=== PATIENT | female | born 1930 | race Caucasian/White ===

== ENCOUNTER → 2017-01-27 | Outpatient (CLI) | payer MEDICARE, BC ==
[~2017-01-27] MED LIST: ADVIL200 M3 PO; ALLOPURINOL300 MG PO; ATORVASTATIN CA10 MG PO; CELEBREX PO; CELLUVISC OD; CELLUVISC OP; CENTRUM PO; CLARITIN10 MG PO; COUMADIN PO; COUMADIN4 MG PO; CYANOCOBAL1000 MCG/1 IJ; FLAGYL PO; FLONASE 0.05% N16 G1; FLONASE16 GM; FLORASTOR250 M1 PO; GABAPENTIN300 M1 PO; GABAPENTIN300 MG PO; GABAPENTIN600 MG PO; KEFLEX500 MG PO; LEVAQUIN PO; LIPITOR PO; LIPITOR20 MG PO; LOSARTAN-HCTZ1 EAC1 PO; LOSARTAN-HCTZ1 EAC3 PO; MULTI VITAMIN1 EACH PO; NASACORT AQ16.5 GM; NEURONTIN300 MG PO; RANITIDINE HCL150 M1 PO; SINGULAIR PO; SYSTANE 0.3-0.415 ML; SYSTANE BALANCE10 ML OP; VIT B-12 IM; VIT B-12 PO; VITAMIN B-1000 MCG/1 IJ; VITAMIN D1000 UNI2 PO; VITAMIN D1000 UNIT PO; WARFARIN SODIUM2 MG PO; ZANTAC150 M1 PO; ZYLOPRIM100 MG PO; ZYRTEC PO
--- NOTE | ~2017-01-27 | MY11 ---
[facility] A Service of [facility] RADIOLOGY TEXT RESULTS PATIENT: ALLISON HIDALGO LOCATION: [facility] #: [id number] : 30 UNIT #: [id number] AGE: [address]: Eyal Quispe MD SEX: F ORDER DR: [id number] [facility] [address] [place], [place] [address] [id number] O MR#: [id number] Acc #: [id number] NAME: ALLISON HIDALGO : 1930 SEX: F STUDY DATE/TIME: 01/27/2017 11:03 UNIT: [facility] ROOM: STUDY DESCRIPTION: MY Mammogram Screening Dig Chavez Attending Physician: Eyal Quispe M.D. Ordering Physician: Eyal Quispe M.D. Primary Care Physician: Eyal Quispe M.D. MEDICAL IMAGING REPORT This report is preliminary unless electronic signature is present EXAM Digital screening mammogram 01/27/2017 HISTORY 86-year-old woman. No risk elevation. Prior left breast biopsy. Annual screen. COMPARISON Mammograms date to 07/22/2006 with most recent screening comparison 01/25/2016. FINDINGS Digital imaging of each breast was completed utilizing screening protocol. Biopsy marker was placed on the left breast superior areolar margin. Review includes FDA-approved CAD device. There are benign stable calcifications in each breast. There is no interval occurring breast mass. I see no suspicious microcalcifications and no architectural deformity at this time. IMPRESSION Stable benign mammogram. Annual screening is optional at this age. Patient's over the age of 40 are entered into a reminder system with target due date for the next mammogram. BIRADS: 2 Benign findings Dictated by... Souleymane Manley M.D. THIS IS AN ELECTRONICALLY VERIFIED REPORT Souleymane Manley M.D. at 01/27/2017 1:32 PM [facility] A Service of [facility] RADIOLOGY TEXT RESULTS PATIENT: ALLISON HIDALGO [facility] [id number] : 30 UNIT #: [id number] AGE: [address]: Eyal Quispe MD SEX: F ORDER DR: STEPHANIE/fani TD: 01/27/2017 13:02 JOB #: [id number] MEDICAL IMAGING REPORT Page 1 of 1 COPY
== END | disposition home or self-care (01) ==
LOC: CWCC 10:41
DX: Z12.31 Encounter for screening mammogram for malignant neoplasm of breast (principal)
CPT/HCPCS: G0202